=== PATIENT | female | born 1950 | race Hispanic/Latino ===

== ENCOUNTER 2023-12-21 08:56 | Emergency (ER) | payer OTHER ==
[~2023-12-21] VITALS: Ht 157.5 cm; Wt 62.1 kg
[2023-12-21] MEDS ORDERED: NAPR-1196 PO (10:02)
[2023-12-21] MEDS: TRIAMCINOLONE ACETONIDE 40 MG/ML 1ML VIAL IM ONE (10:07)
[2023-12-21] MEDS: ORPHENADRINE CITRATE 30 MG/ML ML IM ONE (10:08)
[2023-12-21 10:14] VITALS: BP 148/77; PULSE 94; RESP 20; O2SAT 99
== END 2023-12-21 10:21 | disposition home or self-care (01) ==
LOC: EDH 08:56
DX: G89.29 Other chronic pain (principal); M25.551 Pain in right hip; E11.9 Type 2 diabetes mellitus without complications; E78.00 Pure hypercholesterolemia, unspecified; I10 Essential (primary) hypertension; M16.11 Unilateral primary osteoarthritis, right hip; Z90.49 Acquired absence of other specified parts of digestive tract; Z96.641 Presence of right artificial hip joint; Z98.51 Tubal ligation status
CPT/HCPCS: 99284; 73502; 96372 ×2; J3301; J2360